=== PATIENT | male | born 1980 | race Caucasian/White ===

== ENCOUNTER 2017-08-01 09:56 | Emergency (ER) | payer SELFPAY | END 2017-08-01 10:55 | disposition home or self-care (01) | LOC: M ED 09:56 | DX: J06.9 Acute upper respiratory infection, unspecified (principal); B34.9 Viral infection, unspecified; B30.9 Viral conjunctivitis, unspecified; F17.210 Nicotine dependence, cigarettes, uncomplicated | CPT/HCPCS: 99282 ==

== ENCOUNTER 2017-12-30 09:46 | Day surgery (SDC) | payer SELFPAY ==
[2017-12-30 10:54] LABS: BASO % 0.2 % (0.0-1.0); HEMATOCRIT 47.6 % (42.0-52.0); HEMOGLOBIN 17.1 g/dl (13.5-17.5); IMMATURE GRANULOCYTE % 0.4 % (0-3.0); LYMPH # 1.8 10^3/uL (1.5-4.5); LYMPH % 9.7 % (24.0-44.0); MEAN CORPUSCULAR HEMOGLOBIN 29.6 pg (27.0-33.0); MEAN CORPUSCULAR HGB CONC 35.9 g/dl (32.0-36.5); MEAN CORPUSCULAR VOLUME 82.4 fl (80.0-96.0); MONO # 1.5 10^3/uL (0.0-0.8); MONO % 7.8 % (0.0-5.0); NEUTROPHILS # 15.3 10^3/uL (1.8-7.7); NEUTROPHILS % 81.9 % (36.0-66.0); PLATELET COUNT, AUTOMATED 266 10^3/uL (150-450); RED BLOOD COUNT 5.78 10^6/uL (4.30-6.10); RED CELL DISTRIBUTION WIDTH 12.7 % (11.5-14.5); WHITE BLOOD COUNT 18.7 10^3/uL (4.0-10.0)
[2017-12-30 11:10] LABS: INR 0.96; PROTHROMBIN TIME 12.9 SECONDS (12.1-14.4)
[2017-12-30 11:11] LABS: PARTIAL THROMBOPLASTIN TIME 32.3 SECONDS (25.4-37.6)
[2017-12-30] MEDS: PANTOPRAZOLE 40MG INJ (PROTONIX) (C9113) IV (11:14)
[2017-12-30] MEDS: GI COCKTAIL 50ML BTL(HYOSCYAMINE/MAALOX/LIDOCAINE VISCOUS)(1:3:1) PO (11:14)
[2017-12-30 11:21] LABS: ALBUMIN 4.4 GM/DL (3.2-5.2); ALBUMIN/GLOBULIN RATIO 1.02 (1.00-1.93); ALKALINE PHOSPHATASE 87 U/L (45-117); ALT/SGPT 36 U/L (12-78); ANION GAP 10 MEQ/L (8-16); AST/SGOT 15 U/L (7-37); BILIRUBIN,DIRECT 0.2 MG/DL (0.0-0.2); BILIRUBIN,TOTAL 0.9 MG/DL (0.2-1.0); BLOOD UREA NITROGEN 23 MG/DL (7-18); CALCIUM LEVEL 9.8 MG/DL (8.5-10.1); CARBON DIOXIDE LEVEL 29 MEQ/L (21-32); CHLORIDE LEVEL 99 MEQ/L (98-107); CPK CREATINE PHOSPHOKINASE 125 U/L (39-308); FREE T4 1.36 NG/DL (0.76-1.46); GLOMERULAR FILTRATION RATE > 60.0 (>60); GLUCOSE, FASTING 120 MG/DL (70-100); LIPASE 65 U/L (73-393); POTASSIUM SERUM 3.3 MEQ/L (3.5-5.1); SODIUM LEVEL 138 MEQ/L (136-145); TOTAL PROTEIN 8.7 GM/DL (6.4-8.2); TROPONIN I < 0.02 NG/ML (< 0.10)
[2017-12-30 11:26] LABS: CK-MB VALUE MASS < 1.0 NG/ML (<3.6)
[2017-12-30] MEDS ORDERED: ISOVUE-370 76% 100ML VIAL (Q9967) As Ordered (11:41)
[2017-12-30] MEDS: POTASSIUM CHLORIDE 10 MEQ SR TABLET PO (11:57)
[2017-12-30] MEDS: NS 1,000 ML IV ×2 (14:01→16:22)
[2017-12-30] MEDS: PIPERACILLIN/TAZOBACTAM SOD 4.5 GM in D5W MINI-BAG PLUS 50 ML IV (14:48)
[2017-12-30] MEDS: MORPHINE 4 MG/ML 1ML VIAL/SYRINGE (J2270) IV (16:22)
[2017-12-30] MEDS ORDERED: MIDAZOLAM INJ 2 MG/2 ML VIAL (J2250) As Ordered (17:25)
[2017-12-30] MEDS ORDERED: fentaNYL 100 MCG/2 ML INJECTION (J3010) As Ordered ×2 (17:25→18:48)
[2017-12-30] MEDS ORDERED: LIDOCAINE 2% INJ 100 MG/5 ML SDV (FOR ANES.) As Ordered (17:29)
[2017-12-30] MEDS ORDERED: PROPOFOL 200 MG/20 ML VIAL As Ordered (17:29)
[2017-12-30] MEDS ORDERED: ONDANSETRON 4MG/2ML VIAL (J2405) As Ordered (17:29)
[2017-12-30] MEDS ORDERED: dexameTHASONE 4 MG/ML 1ML VIAL (J1100) As Ordered (17:29)
[2017-12-30] MEDS ORDERED: LABETALOL HCL 100 MG/20 ML VIAL As Ordered (18:09)
[2017-12-30] MEDS ORDERED: NEOSTIGMINE 10 MG/10 ML VIAL (J2710) As Ordered (18:48)
[2017-12-30] MEDS: BUPIVACAINE HCL 0.25% 30 ML VIAL As Ordered (18:48)
[2017-12-30] MEDS ORDERED: GLYCOPYRROLATE INJ 0.2 MG/ML 2 ML VIAL As Ordered (18:48)
[2017-12-30] MEDS ORDERED: NORCO, ANEXSIA 5/325MG TABLET (HYDROcodone/ACETAMINOPHEN) PO ×2 (19:15→19:30)
[2017-12-30] MEDS ORDERED: ONDANSETRON 4MG/2ML VIAL (J2405) IV ×2 (19:15→19:30)
[2017-12-30] MEDS ORDERED: ACETAMINOPHEN TAB 650MG DOSE (2X325MG) PO (19:15)
[2017-12-30] MEDS ORDERED: MORPHINE 4 MG/ML 1ML VIAL/SYRINGE (J2270) IV (19:15)
[2017-12-30] MEDS ORDERED: IBUPROFEN 600 MG TAB PO (19:15)
[2017-12-30] MEDS ORDERED: fentaNYL 100 MCG/2 ML INJECTION (J3010) IV (19:30)
[2017-12-30] MEDS: LR 1,000 ML IV ×2 (21:11→23:51)
[2017-12-30] MEDS: PIPERACILLIN/TAZOBACTAM SOD 3.375 GM in D5W MINI-BAG PLUS 50 ML IV (22:05)
[2017-12-31] MEDS: LR 1,000 ML IV (03:07)
== END 2017-12-31 12:00 | disposition left against medical advice (07) ==
LOC: M ED INP 20:00 → M ED 09:46 → M SDC 16:54 → M MS5PR 20:00 → M ED INP 16:54 → M SDC 12-31 12:00 → M MS5PR 20:00
DX: K35.89 Other acute appendicitis (principal); F17.210 Nicotine dependence, cigarettes, uncomplicated; Z79.82 Long term (current) use of aspirin
CPT/HCPCS: 44970

== ENCOUNTER 2018-06-26 08:13 | Emergency (ER) | payer OTHER, SELFPAY ==
[~2018-06-26] VITALS: Ht 157.5 cm; Wt 61.8 kg
[~2018-06-26 08:13] MED LIST: ASPI1TAB PO; CROM5SOL OP; FLON1SPR; IBUP-1022 PO; SUDA1TAB3 PO
[2018-06-26 08:33] LABS: BASO % 0.3 % (0.0-1.0); EOS # 0.1 10^3/uL (0.0-0.50); EOS % 1.9 % (0.0-3.0); HEMATOCRIT 48.5 % (42.0-52.0); HEMOGLOBIN 16.7 g/dl (13.5-17.5); LYMPH # 1.5 10^3/uL (1.5-4.5); LYMPH % 23.6 % (24.0-44.0); MEAN CORPUSCULAR HEMOGLOBIN 30.1 pg (27.0-33.0); MEAN CORPUSCULAR HGB CONC 34.4 g/dl (32.0-36.5); MEAN CORPUSCULAR VOLUME 87.5 fl (80.0-96.0); MONO # 0.9 10^3/uL (0.0-0.8); MONO % 14.2 % (0.0-5.0); NEUTROPHILS # 3.8 10^3/uL (1.8-7.7); NEUTROPHILS % 59.7 % (36.0-66.0); PLATELET COUNT, AUTOMATED 193 10^3/uL (150-450); RED BLOOD COUNT 5.54 10^6/uL (4.30-6.10); WHITE BLOOD COUNT 6.4 10^3/uL (4.0-10.0)
[2018-06-26] MEDS: NITROGLYCERIN 0.4 MG SUBL TABLET SL PRN ×2 (08:37→09:01)
[2018-06-26 08:42] LABS: INR 0.97
[2018-06-26 08:43] LABS: PARTIAL THROMBOPLASTIN TIME 35.4 SECONDS (25.4-37.6)
[2018-06-26 09:01] VITALS: BP 114/66
[2018-06-26 09:13] LABS: ALBUMIN 3.6 GM/DL (3.2-5.2); ALT/SGPT 23 U/L (12-78); BILIRUBIN,DIRECT < 0.1 MG/DL (0.0-0.2); BILIRUBIN,TOTAL 0.3 MG/DL (0.2-1.0); BLOOD UREA NITROGEN 6 MG/DL (7-18); CALCIUM LEVEL 9.1 MG/DL (8.5-10.1); CARBON DIOXIDE LEVEL 29 MEQ/L (21-32); CHLORIDE LEVEL 106 MEQ/L (98-107); CK-MB VALUE MASS < 1.0 NG/ML (<3.6); CPK CREATINE PHOSPHOKINASE 83 U/L (39-308); CREATININE FOR GFR 0.76 MG/DL (0.70-1.30); FREE T4 0.99 NG/DL (0.76-1.46); GLOMERULAR FILTRATION RATE > 60.0 (>60); GLUCOSE, FASTING 107 MG/DL (70-100); LIPASE 93 U/L (73-393); POTASSIUM SERUM 4.2 MEQ/L (3.5-5.1); SODIUM LEVEL 139 MEQ/L (136-145); TOTAL PROTEIN 6.8 GM/DL (6.4-8.2); TROPONIN I < 0.02 NG/ML (< 0.10)
[2018-06-26] MEDS ORDERED: ISOVUE-370 76% 100ML VIAL (Q9967) As Ordered ONE (09:30)
--- NOTE | 2018-06-26 09:33 | REP ---
Chest two views HISTORY: Chest pain Comparison: 12/30/2017 The lungs are clear. The heart is normal in size. The pulmonary vasculature is normal in appearance. The bony structure is intact. IMPRESSION: No acute disease. Electronically Signed by Vu Galdamez MD 06/26/2018 09:24 A
--- NOTE | 2018-06-26 09:56 | REP ---
CT pulmonary angiogram: With IV contrast. History: Chest pain shortness of breath. Comparison studies: December 30, 2017 Contrast dose: 75 cc's of Isovue [address] technique: Helical scanning is acquired and overlapping 1.5 mm and contiguous 3 mm axial images are reformatted. In addition, maximum intensity projection and multiplanar re-formation images are generated in sagittal and coronal imaging projections. CT pulmonary angiographic findings: There is good opacification of the pulmonary arterial tree. There is no CT evidence of pulmonary embolism. Thoracic aorta is normal in course and caliber and enhances homogeneously. No evidence of dissection. There are multiple scattered granulomatous calcifications in the lung singer. No suspicious pulmonary nodule is appreciated. No hilar or mediastinal mass or adenopathy is observed. No infiltrate is seen. No pleural or pericardial effusion is observed. Normal adrenal glands are seen bilaterally in the upper abdomen. There is a small accessory splenule. No bony destructive lesion is appreciated. Impression: No CT evidence of pulmonary embolus. Old granulomatous calcifications in the lung singer. Otherwise no acute disease. Electronically Signed by Frankie Aquino MD 06/26/2018 09:47 A
[2018-06-26 14:59] LABS: CK-MB VALUE MASS < 1.0 NG/ML (<3.6); CPK CREATINE PHOSPHOKINASE 75 U/L (39-308); MB/CK RELATIVE INDEX 1.33 (< OR =4); TROPONIN I < 0.02 NG/ML (< 0.10)
[2018-06-26 15:48] VITALS: BP 140/90
--- NOTE | 2018-06-27 13:51 | ECGEPIP ---
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
--- NOTE | 2018-06-27 13:56 | ECGEPIP ---
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
== END 2018-06-26 15:56 | disposition home or self-care (01) ==
LOC: M ED 08:13
DX: R07.9 Chest pain, unspecified (principal); I25.2 Old myocardial infarction; Z72.0 Tobacco use; Z82.49 Family history of ischemic heart disease and other diseases of the circulatory system; Z79.82 Long term (current) use of aspirin
CPT/HCPCS: 36415; 71046; 71275; 80048; 80076; 82550; 82553; 83690; 84439; 84443; 85025; 85610; 85730; 93005; 93041; 94760; 99285; Q9967

== ENCOUNTER 2021-03-25 21:24 | Emergency (ER) | payer OTHER ==
[~2021-03-25] VITALS: Ht 162.6 cm; Wt 75.0 kg
[~2021-03-25 21:24] MED LIST changes: -ASPI1TAB PO; +ASPI81TA26 PO
[2021-03-25 21:25] VITALS: BP 143/74
--- OUTSIDE RECORDS SUMMARY | 2021-03-29 13:33 | CCD ---
Author Author [facility] Organization [facility] Address Unknown Phone Unavailable Care Team Providers Care Road Roller Operator Name Role Phone NO, PCP Unavailable Unavailable Rei Baker MD Unavailable Unavailable Rei Baker MD Unavailable Unavailable Rei Baker MD Unavailable Unavailable Rei Baker MD Unavailable Unavailable Rei Baker MD Unavailable Unavailable Rei Baker MD Unavailable Unavailable Re-disclosure Warning The records that you are about to access may contain information from federally-assisted alcohol or drug abuse programs. If such information is present, then the following federally mandated warning applies: This information has been disclosed to you from records protected by federal confidentiality rules (42 CFR part 2). The federal rules prohibit you from making any further disclosure of this information unless further disclosure is expressly permitted by the written consent of the person to whom it pertains or as otherwise permitted by 42 CFR part 2. A general authorization for the release of medical or other information is NOT sufficient for this purpose. The Federal rules restrict any use of the information to criminally investigate or prosecute any alcohol or drug abuse patient.The records that you are about to access may contain highly sensitive health information, the redisclosure of which is protected by Article 27-F of the [facility] Public Health law. If you continue you may have access to information: Regarding HIV / AIDS; Provided by facilities licensed or operated by the [facility] Office of Mental Health; or Provided by the [facility] Office for People With Developmental Disabilities. If such information is present, then the following [facility] mandated warning applies: This information has been disclosed to you from confidential records which are protected by state law. State law prohibits you from making any further disclosure of this information without the specific written consent of the person to whom it pertains, or as otherwise permitted by law. Any unauthorized further disclosure in violation of state law may result in a fine or longterm sentence or both. A general authorization for the release of medical or other information is NOT sufficient authorization for further disc losure. Family History Family Member Name Family Member Gender Family Member Status Date o f Status Description Data Source(s) Unknown Unknown Problem [facility] ([facility]) Unknown Unknown Problem [facility] ([facility]) Encounters Encounter Providers Location Date Indications Data Source(s ) Emergency Attender: Rei Baker MDConsultant: PCP NO 03/27/2021 05:59:00 PM EDT - 03/27/2021 08:38:00 PM EDT [facility] Patient discharged. Medications No Information Insurance Providers Payer name Policy type / Coverage type Policy ID Covered alliance party ID Covered alliance party's relationship to gonzalez Policy Gonzalez Plan Information CALLIE [id number] SP [id number] 600 CALLIE [facility] O [id number] S [id number] CALLIE [id number] SP [id number] SELF PAY ONLY [id number] SP [id number] SELF PAY ONLY UNAVAILABLE UNAV AILABLE SELF PAY UNAVAILABLE SP UNAVAILA BLE MEDICAID [id number] SP [id number] [employer]UN[employer] PLAN MCDO [id number] SP [id number] UN COMMUNITY PLAN MCDO UNAVAILABLE SP UNAVAILABLE MEDICAID UNAVAILABLE UNAVAILA BLE BLUE CROSS DUONG PLAN [id number] SP [id number] [facility] BLUE [id number] SP [id number] [facility] BLUE [id number] SP [id number] Problems, Conditions, and Diagnoses No Information Surgeries/Procedures No Information Results ID Date Data Source [id number] 03/27/2021 05:59:00 PM EDT [facility] 1 OrderSheet [facility] Emergency Department [address] [place] [address] Phone #: ext- [phone] 03/27/2021 17:59 Patient: JOSE MIGUEL RAMIREZ Sex: M : 1980 Age: 40yWEIGHT:74.8 kg (S) HEIGHT:64 inches (S) BMI:28.3ALLERGIES: No Known Drug AllergyCHIEF COMPLAINT: inguinal swellingDIAGNOSIS: Strain of tendon of medial thigh muscleLAB ORDERSOrder Description Priority Entered Acknowledged InitialedDIAGNOSTIC STUDY ORDERSOrder Description Priority Entered Acknowledged InitialedUS Scrotal STAT 18:31 03/27/2021 18:32 Lucy(Oxygen?(No)) Cain Daly RN PA; NOTES: Hernia? Reason for Study: Testicle/Scrotum PainUS Abdomen STAT 18:31 03/27/2021 18:32 Pato Ayala RN(Oxygen?(No)) PA; NOTES: Left Inguinal Hernia? Reason for Study: HerniaMEDICATION/IV/DRIP/FLUID ORDERSOrder Description Priority Entered Acknowledged InitialedToradol IM 60 mg 18:31 03/27/2021 19:31 Cain Gan R.N. PA;GENERAL ORDERSOrder Description Priority Entered Acknowledged Initialed[Electronically signed by Kim Gan R.N. (20:38 03/27/2021)][Electronically signed by Cain Kay (22:08 03/27/2021)][Electronically locked by Kim Gan R.N. (20:38 03/27/2021)] Name Value Range Interpretation Code Description Data Jenifer rce(s) Supporting Document(s) ID Date Data Source [id number] 03/27/2021 05:59:00 PM EDT [facility] 1 Medication Reconciliation Report [facility] Emergency Department [address] [place] [address] Phone #: ext- [phone] 03/27/2021 17:59 Patient: JOSE MIGUEL RAMIREZ Sex: M : 1980 Age: 40yWeight: 74.8 kgHeight/Length: 64 in.BMI: 28.3ALLERGIES: No Known Drug AllergyThe patient's Home Medications are listed below:NONE.The source(s) of the original Home Medication information:patientThe following Medications were given to the patient in the Emergency Department:Toradol [IM] IM 60 mg, administered: 19:31 03/27/2021The following Medications were prescribed to the patient:ibuprofen 800 mg tablet Take 1 tablet three times a day as needed for pain for 15 days -- Dispense 45tablet. Refills: 0. Substitution permitted. Note to Pharmacy - USE Rx DISCOUNT CARD: $10.3,BIN:[id number], PCN:VONNIE, Group:[id number], ID:[id number].Pharmacy - [facility] - [address] [place] [address]. Phone: FaxNumber: . -- HERVE Gonzalez Name Value Range Interpretation Code Description Data Jenifer rce(s) Supporting Document(s) ID Date Data Source [id number] 03/27/2021 05:59:00 PM EDT [facility] 1 Medication Administration Record [facility] Emergency Department [address] [place] [address] Phone #: ext- [phone] 03/27/2021 17:59 Patient: JOSE MIGUEL RAMIREZ Sex: Andrea : 1980 Age: 40yWeight: 74.8 kgHeight/Length: 64 inBMI: 28.3ALLERGIES: No Known Drug Allergy Date/Time Medication Administered Medication OrderedGiven TORADOL [IM] (KETOROLAC Toradol IM 60 mg19:31 03/27/2021 TRO METHAMINE)Kim Gan R.N. Dose: 60 mg IM Name Value Range Interpretation Code Description Data Jenifer rce(s) Supporting Document(s) ID Date Data Source [id number] 03/27/2021 05:59:00 PM EDT [facility] 1 General Instructions [facility] Emergency Department [address] [place] [address] Phone #: ext- [phone] 03/27/2021 17:59 Patient: JOSE MIGUEL RAMIREZ Sex: M : 1980 Age: 40yStrain of left inguinal areaINSTRUCTIONSDo not work today, tomorrow.(Wear supprtive underwear).Warnings: Further evaluation is necessary. It is very important to follow up with a healthcare provider.GENERAL WARNINGS: Return or contact your physician immediately if your condition worsens orchanges unexpectedly, if not improving as expected, or if other problems arise. Specifically return if painworsens.Your Current Medications: .No home medication.Prescription Medications:ibuprofen 800 mg tablet Take 1 tablet three times a day as needed for pain for 15 days -- Dispense 45tablet. Refills: 0. Substitution permitted. Note to Pharmacy - USE Rx DISCOUNT CARD: $10. 3,BIN:[id number], PCN:VONNIE, Group:[id number], ID:[id number].Pharmacy - [facility] #[address] - [id number] ; [place] [address]. FaxNumber: .Understanding of the discharge instructions verbalized by patient.Follow-up with: [facility], , , [address] [place] [address], [facility] Follow up. Call for the next available appointment. Reason for referral: evaluation, treatment andevaluate Left Groin Pain. Summary of care provided to patient. ADDITIONAL INFORMATIONGroin Strain (Adult)A groin strain is a stretching or partial tearing of the muscle in the lower belly (abdomen) or upperthigh. This may happen because of too much coughing, heavy lifting, or active sports. The pain maylast for several days or weeks, depending on how bad the stretch or tear is. It will generally get betterwith rest, ice, and anti-inflammatory medicines. 2 General Instructions [facility] Emergency Department [address] [place] [address] Phone #: [phone] 03/27/2021 17:59 Patient: JOSE MIGUEL RAMIREZ Sex: M : 1980 Age: 40yA groin strain can lead to a groin hernia. This is also called an inguinal hernia. A hernia is a completetear of the abdominal muscle. This allows fat or the intestines to bulge out and create a visible bumpjust above the thigh crease. This is a more serious problem and may need surgery to repair it. Whenyou lie down, the bump should get smaller or disappear completely. If it doesn't, and you are not ableto flatten it with your hand, you need medical attention right away.Home care Don't do any heavy lifting, straining, or any activities that cause groin pain. You may use [id number] pain medicine to control pain, unless another pain medicine was prescribed. If you have chronic liver or kidney disease or ever had a stomach ulcer or GI (gastrointestinal) bleeding, talk with your healthcare provider before using these medicines.Follow-up careFollow up with your healthcare provider, or as advised. Make an appointment with your healthcareprovider if you develop a bump in the area of the groin strain.When to seek medical adviceCall your healthcare provider right away if any of these occur: Increasing pain in the area of the groin strain Tender bump just above the groin crease that does not flatten when you lie down or press on it Overall abdominal swelling or pain Fever of 100.4F (38C) or above lasting for 24 to 48 hours Chills Repeated vomiting Pain that moves to the lower right abdomen, just below the waistline, or spreads to the back [id number] The [employer]. [address] [place] [address]. All rights reserved. This information is not intended as asubstitute for professional medical care. Always follow your healthcare professional's instructions. You have been given the following additional information: Groin Strain 3 General Instructions [facility] Emergency Department [address] [place] [address] Phone #: ext- [phone] 03/27/2021 17:59 Patient: JOSE MIGUEL RAMIREZ Sex: M : 1980 Age: 40yDo not work today, tomorrow.(Electronically signed by HERVE Gonzalez 03/27/2021 22:08) Name Value Range Interpretation Code Description Data Jenifer rce(s) Supporting Document(s) ID Date Data Source [id number] 03/27/2021 05:59:00 PM EDT [facility] 1 Clinical Report - Nurses [facility] Emergency Department [address] [place] [address] Phone #: ext- [phone] 03/27/2021 17:59 Patient: JOSE MIGUEL RAMIREZ Sex: M : 1980 Age: 40yTRIAGEArrived by private vehicle. Historian: patient. ( presents via taxi with c/o L inguinal swelling and painalong with L testicle swelling, started , had surgery there in 2005).Triage time: 18:10 03/27/2021. Acuity: LEVEL 3.Chief Complaint: INGUINAL SWELLING (L inguinal swelling and L testicular swelling).Alert. No acute distress.Onset. (4 days). He has had testicular pain, involving the left testicle and inguinal swelling.Treatment SECURITY REP:Took Tylenol and ibuprofen.SEPSIS SCREEN: SIRS SCREEN NEGATIVE. SEPSIS SCREEN NEGATIVE. No suspected or confirmedsigns of infection present. --18:15 03/27/21 Malika Ayala RN18:10 03/27/21. BP: 131/83. MAP: 99. HR: 81. RR: 16. O2 saturation: 97%. Temp: 98.5 F. Pain level now:01/24. --18:15 03/27/21 Malika Ayala RN.Weight: 74.8 kg stated. Height/Length: 64 inches Per Patient. BMI: 28.3. --18:11 03/27/21 Malika Ayala RN.MedicationsNone. --18:13 03/27/21 Malika Ayala RN.AllergiesNo Known Drug Allergy. --18:13 03/27/21 Malika Ayala RN.PROBLEMS:Chest Wall Pain.Myocardial Infarction. --18:13 03/27/21 Malika Ayala RN.Medication/allergy information source: the patient and patient's previous visit record. --18:15 03/27/21Malika Ayala RN.ADDITIONAL SURGERIES:Appendectomy.Hernia Repair. --18:13 03/27/21 Malika Aylaa RN.History 2 Clinical Report - Nurses [facility] Emergency Department [address] [place] [address] Phone #: ext- [phone] 03/27/2021 17:59 Patient: JOSE MIGUEL RAMIREZ Sex: M : 1980 Age: 40y SOCIAL HX: Heavy tobacco smoker- less than 1 pack per day. Occasional alcohol use. Drug use: marijuana. He was offered HIV testing but declined and hepatitis C testing but declined. He has not traveled outside the [place] Infectious disease exposure: No infectious disease exposure. SELF HARM ASSESSMENT: Self harm assessment was performed. The patient answered "no" to the question(s) "Have you recently felt down, depressed, or hopeless?". ABUSE ASSESSMENT: No report of abuse. NUTRITIONAL RISK ASSESSMENT: The nutritional risk assessment revealed no deficiencies. FUNCTIONAL ASSESSMENT: Functional assessment: no impairments noted. LEARNING NEEDS ASSESSMENT: The learning needs assessment revealed no barriers. FALL RISK ASSESSMENT: Fall risk assessment completed. No risk factors identified. SKIN INTEGRITY ASSESSMENT: Skin integrity risk assessment completed. No skin integrity risk identified. --18:15 03/27/21 Malika Ayala RN.PHYSICAL ASSESSMENTAmbulatory to room.GENERAL / NEURO / PSYCH: Alert. Oriented X 4. Appears in no acute distress.HEENT: Mucous membranes are pink.RESPIRATORY: Respirations not labored.CVS: Capillary refill less than 2 seconds.GI / : Scrotal swelling. Scrotal tenderness.SKIN: Skin is warm and dry. --18:16 05/07 Malika Ayala RN.NURSING PROGRESS NOTESPatient gowned. Reassurance given. Two patient identifiers checked. Bed placed in lowest position.Brakes of bed on. Patient ready for evaluation. --18:15 03/27/21 Malika Ayala RN 18:34 03/27/21. [facility] with nuclear chemistry technician. --18:49 03/27/21 Malika Ayala RN 19:31 03/27/2021 Toradol (Ketorolac Tromethamine) IM 60 mg given. Given in the right deltoid. Allergies verified and confirmed 5 rights. Information reviewed with patient. Verbalizes understanding. --19:31 03/27/21 Kim Gan R.N. 19:34 03/27/21. BP: 129/83. HR: 80. RR: 16. O2 saturation: 99%. --19:34 03/27/21 [facility]. 3 Clinical Report - Nurses [facility] Emergency Department [address] [place] [address] Phone #: ext- [phone] 03/27/2021 17:59 Patient: JOSE MIGUEL RAMIREZ Sex: M : 1980 Age: 40yDISPOSITION / DISCHARGE 20:31 03/27/21. BP: 127/89. HR: 86. RR: 16. O2 saturation: 99%. Temp: 98.1 F. Pain level now 08/24. --20:32 03/27/21 [facility] [address] Condition at departure: stable. No learning barriers present. Discharge instructions provided and reviewed with the patient. Reviewed warnings. Reviewed medication(s) side effects, precautions, dosing and course information. Prescription(s) given to the patient and sent electronically to pharmacy. Medication(s) for home use given to the patient per protocol. Treatments reviewed. Reviewed referral to a surgeon for followup. Work note given. Patient verbalized understanding. Written instructions provided in [place]. The patient was discharged by the physician actuarial assistant. He was discharged home and accompanied by field contractor. He left ambulatory and via private vehicle. Analytical Lab Analyst driving. --20:38 03/27/21 Kim Gan R.N.Locked/Released at 03/27/2021 20:38 by Kim Gan R.N. Name Value Range Interpretation Code Description Data Jenifer rce(s) Supporting Document(s) ID Date Data Source [id number] 03/27/2021 05:59:00 PM EDT [facility] 1 Clinical Report - Physicians/Mid Levels [facility] Emergency Department [address] [place] [address] Phone #: ext- [phone] 03/27/2021 17:59 Patient: JOSE MIGUEL RAMIREZ Sex: M : 1980 Age: 40y Time Seen: 18:21 03/27/2021. Arrived- By private vehicle. Historian- patient.HISTORY OF PRESENT ILLNESS Chief Complaint: Left Groin and Left Testicular pain. This started 4 days ago; presents via taxi with c/o L inguinal swelling and pain along with L testicle swelling, started th, had surgery there in 2005) and is still present. It was gradual in onset and has been constant. At its maximum, severity described as mild. When seen in the E.D., severity described as mild. No loss of appetite, weight loss, headache, visual disturbance or fatigue. No muscle aches or weakness. Denies sleep problem. Similar symptoms previously. Patient has had similar symptoms once. Recent medical care: Not recently seen/assessed.REVIEW OF SYSTEMSNo fever, sore throat, sinus drainage, nasal congestion or cough. No difficulty breathing, chest pain,abdominal pain, nausea or vomiting. No diarrhea, black stools, bloody stools, chills or difficulty withurination. No skin rash, back pain, calf pain, headache or blackouts. No double vision. No difficulty withambulation.PAST HISTORYProblems:Chest Wall Pain.Myocardial Infarction. Additional Surgeries: Appendectomy. Hernia Repair. Medications: None. Allergies: No Known Drug Allergy.SOCIAL HISTORYHeavy tobacco smoker (cigarette)- 1 pack per day. Occasional alcohol use. Occasional drug use:marijuana.PHYSICAL EXAMVital Signs: 03/27/2021 18:10 BP: 131/83. MAP: 99. HR: 81. RR: 16. O2 saturation: 97%. Temp: 98.5 F.Pain level now: 01/24. Have been reviewed as normal. Oxygen saturation normal. 2 Clinical Report - Physicians/Mid Levels [facility] Emergency Department [address] [place] [address] Phone #: ext- [phone] 03/27/2021 17:59 ---- Patient: JOSE MIGUEL RAMIREZ Sex: M : 1980 Age: 40y Appearance: Alert. No acute distress. Eyes: Pupils equal, round and reactive to light. Eyes normal inspection. ENT: Ears normal. Nose normal. Pharynx normal. Neck: Normal inspection. Neck supple. CVS: Normal heart rate and rhythm. Respiratory: No respiratory distress. Abdomen: No visible injury. Soft. Bowel sounds normal. No mass. No mass present. (neg inguinal hernia palpated). Back: Normal inspection. : Mild tenderness of the left testicle and epididymis. Skin: Skin warm and dry. Normal skin color. No rash. Normal skin turgor. Extremities: Extremities exhibit normal ROM. Neuro: Oriented X 3.LABS, X-RAYS, AND EKGAbdominal Sonogram: Normal study. (no hernia). The study was interpreted by the radiologist andcontemporaneously by me. Interpretation time: 20:25 03/27/2021.Laboratory Tests: Laboratory tests have been ordered, with results reviewed and considered in themedical decision making process.Note - Tests: (US Testicles- Small Bilat Varicoceles).PROGRESS AND PROCEDURESCourse of Care: :Mar 27 2021. Evaluation after observation. (Discussed exam and US results andpt is agreeable with dx and tx plan.). Patient counseled in person regarding the patient's stable condition, test results, diagnosis and need for follow-up. Patient agrees with plan of care. 20:Mar 27 2021. Disposition: Discharged home in good and improved condition (20:Mar 27 2021).CLINICAL IMPRESSION Strain of left inguinal areaINSTRUCTIONS Do not work today, tomorrow. (Wear supprtive underwear). Warnings: Further evaluation is necessary. It is very important to follow up with a healthcare provider. GENERAL WARNINGS: Return or contact your physician immediately if your condition worsens or changes unexpectedly, if not improving as expected, or if other problems arise. Specific ally return if pain 3 Clinical Report - Physicians/Mid Levels [facility] Emergency Department [address] [place] [address] Phone #: ext- [phone] 03/27/2021 17:59 Patient: JOSE MIGUEL RAMIREZ Sex: M : 1980 Age: 40y worsens. Your Current Medications: . No home medication. Prescription Medications: ibuprofen 800 mg tablet Take 1 tablet three times a day as needed for pain for 15 days -- Dispense 45 tablet. Refills: 0. Substitution permitted. Note to Pharmacy - USE Rx DISCOUNT CARD: $10.3, BIN:[id number], PCN:VONNIE, Group:GERALD, ID:[id number]. Pharmacy - [facility] #06 - [id number] ; [place] [address]. . Understanding of the discharge instructions verbalized by patient. Follow-up with: [facility], , , [address] [place] [address], [id number] Follow up. Call for the next available appointment. Reason for referral: evaluation, treatment and evaluate Left Groin Pain. Summary of care provided to patient.(Electronically signed by HERVE Gonzalez 03/27/2021 22:08) Name Value Range Interpretation Code Description Data Jenifer rce(s) Supporting Document(s) Procedure Social History No Information
== END 2021-03-26 02:58 | disposition left against medical advice (07) ==
LOC: M ED 21:24
DX: Z53.29 Procedure and treatment not carried out because of patient's decision for other reasons (principal)

== ENCOUNTER 2021-12-18 10:55 | Emergency (ER) | payer MEDICAID, OTHER, SELFPAY ==
[~2021-12-18] VITALS: Ht 162.6 cm; Wt 68.2 kg
[2021-12-18 10:55] VITALS: BP 134/97
[2021-12-18] MEDS ORDERED: BOOSTRIX/ADACEL VACCINE (DIPHTH/PERTUSS/ACELL/TETANUS) 0.5ML SYR IM ONE (12:10)
== END 2021-12-18 12:50 | disposition home or self-care (01) ==
LOC: M ED 10:55
DX: S61.215A Laceration without foreign body of left ring finger without damage to nail, initial encounter (principal); W26.9XXA Contact with unspecified sharp object(s), initial encounter; Y93.G1 Activity, food preparation and clean up; Y99.0 Civilian activity done for income or pay; I25.2 Old myocardial infarction

== ENCOUNTER → 2022-08-27 | Outpatient (REF) | payer MEDICAID, SELFPAY ==
[~2022-08-27] MED LIST changes: +CROM4SOL4 OP; -CROM5SOL OP
[2022-08-27 14:32] LABS: ALBUMIN 4.3 G/DL (3.2-5.2); ALKALINE PHOSPHATASE 89 U/L (46-116); ALT/SGPT 29 U/L (7.0-40); AST/SGOT 24 U/L (<34); BILIRUBIN,TOTAL 0.6 MG/DL (0.3-1.2); BLOOD UREA NITROGEN 11 MG/DL (9-23); CARBON DIOXIDE LEVEL 29 MMOL/L (20-31); CHLORIDE LEVEL 103 MMOL/L (98-107); CHOLESTEROL LEVEL 215 MG/DL (<200); CHOLESTEROL RISK RATIO 3.22 (<5); CREATININE FOR GFR 0.72 MG/DL (0.70-1.30); GLOMERULAR FILTRATION RATE > 60.0 (>60); GLUCOSE, FASTING 114 MG/DL (60-100); HDL CHOLESTEROL 66.7 MG/DL (>40); LDL CHOLESTEROL 124.1 MG/DL (<100); NON-HDL-C 148.3 MG/DL; POTASSIUM SERUM 3.7 MMOL/L (3.5-5.1); SODIUM LEVEL 139 MMOL/L (136-145); TOTAL PROTEIN 7.5 G/DL (5.7-8.2); TRIGLYCERIDES LEVEL 121 MG/DL (<150)
[2022-08-27 14:34] LABS: BASO % 0.3 % (0.0-1.0); EOS # 0.1 10^3/uL (0.0-0.5); EOS % 1.2 % (0.0-3.0); HEMATOCRIT 46.7 % (42.0-52.0); LYMPH # 1.7 10^3/uL (1.5-5.0); LYMPH % 17.5 % (24.0-44.0); MEAN CORPUSCULAR HEMOGLOBIN 30.3 pg (27.0-33.0); MEAN CORPUSCULAR HGB CONC 34.3 g/dl (32.0-36.5); MEAN CORPUSCULAR VOLUME 88.4 fl (80.0-96.0); NEUTROPHILS # 6.9 10^3/uL (1.5-8.5); NEUTROPHILS % 70.6 % (36.0-66.0); PLATELET COUNT, AUTOMATED 246 10^3/uL (150-450); RED BLOOD COUNT 5.28 10^6/uL (4.30-6.10); THYROID STIMULATING HORMONE 1.152 uIU/ML (0.55-4.78); WHITE BLOOD COUNT 9.8 10^3/uL (4.0-10.0)
[2022-08-27 15:09] LABS: HEMOGLOBIN A1c 5.3 % (4.0-6.0)
== END ==
LOC: M LAB REF 12:17
PROVIDERS: ATTEND Nurse Practitioner Family
DX: Z68.29 Body mass index [BMI] 29.0-29.9, adult (principal); R51.9 Headache, unspecified

== ENCOUNTER 2024-07-02 11:30 | Emergency (ER) | payer SELFPAY ==
[~2024-07-02] VITALS: Ht 162.6 cm; Wt 70.2 kg
[2024-07-02 12:22] LABS: BASO % 0.2 % (0.0-1.0); EOS # 0.2 10^3/uL (0.0-0.5); EOS % 1.1 % (0.0-3.0); HEMOGLOBIN 16.3 g/dl (13.5-17.5); LYMPH # 2.6 10^3/uL (1.5-5.0); LYMPH % 17.7 % (24.0-44.0); MEAN CORPUSCULAR HEMOGLOBIN 29.6 pg (27.0-33.0); MEAN CORPUSCULAR HGB CONC 34.7 g/dl (32.0-36.5); MEAN CORPUSCULAR VOLUME 85.3 fl (80.0-96.0); MONO # 1.6 10^3/uL (0.0-0.8); MONO % 10.7 % (2.0-8.0); NEUTROPHILS # 10.4 10^3/uL (1.5-8.5); PLATELET COUNT, AUTOMATED 272 10^3/uL (150-450); RED BLOOD COUNT 5.51 10^6/uL (4.30-6.10); WHITE BLOOD COUNT 14.8 10^3/uL (4.0-10.0)
[2024-07-02 12:51] LABS: ALBUMIN 4.6 G/DL (3.2-5.2); ALKALINE PHOSPHATASE 86 U/L (40-129); ALT/SGPT 25 U/L (7.0-40); AST/SGOT 21 U/L (<34); BILIRUBIN,DIRECT 0.1 MG/DL (<0.4); BILIRUBIN,TOTAL 0.6 MG/DL (0.3-1.2); BLOOD UREA NITROGEN 15 MG/DL (9-23); CALCIUM LEVEL 9.6 MG/DL (8.5-10.1); CARBON DIOXIDE LEVEL 34 MMOL/L (20-31); CHLORIDE LEVEL 101 MMOL/L (98-107); CREATININE FOR GFR 0.61 MG/DL (0.70-1.30); GLOMERULAR FILTRATION RATE > 60.0 (>60); GLUCOSE, FASTING 108 MG/DL (60-100); SODIUM LEVEL 143 MMOL/L (136-145); TOTAL PROTEIN 8.1 G/DL (5.7-8.2)
[2024-07-02 15:31] VITALS: O2SAT 97
[2024-07-02] MEDS: ONDANSETRON 4MG ORAL DISINTEGRATING TAB PO ONE (16:28)
[2024-07-02] MEDS: KETOROLAC 60MG 2ML VIAL IM ONE (16:30)
[2024-07-02 16:39] LABS: LIPASE 117 U/L (12-53)
[2024-07-02] MEDS ORDERED: ISOVUE-370 76% 100ML VIAL As Ordered ONE (16:57)
[2024-07-02] MEDS ORDERED: ONDA-282 PO (17:46)
[2024-07-02 17:52] VITALS: BP 133/88; TEMP 99.3
== END 2024-07-02 17:52 | disposition home or self-care (01) ==
LOC: M ED 11:30
DX: A09 Infectious gastroenteritis and colitis, unspecified (principal); K40.90 Unilateral inguinal hernia, without obstruction or gangrene, not specified as recurrent; K76.0 Fatty (change of) liver, not elsewhere classified; F17.210 Nicotine dependence, cigarettes, uncomplicated; F12.10 Cannabis abuse, uncomplicated; Z79.899 Other long term (current) drug therapy
CPT/HCPCS: 74177; 80048; 80076; 83690; 85025; 87486; 87581; 87633; 87798; 96372; 99284; J1885; Q9967

== ENCOUNTER → 2024-07-06 | Outpatient (REF) | payer OTHER, SELFPAY ==
[~2024-07-06] MED LIST changes: +ONDA-282 PO
[2024-07-06 17:59] LABS: BASO % 0.4 % (0.0-1.0); EOS # 0.1 10^3/uL (0.0-0.5); HEMATOCRIT 46.3 % (42.0-52.0); HEMOGLOBIN 15.4 g/dl (13.5-17.5); LYMPH # 2.6 10^3/uL (1.5-5.0); LYMPH % 25.6 % (24.0-44.0); MEAN CORPUSCULAR HEMOGLOBIN 29.2 pg (27.0-33.0); MEAN CORPUSCULAR HGB CONC 33.3 g/dl (32.0-36.5); MEAN CORPUSCULAR VOLUME 87.9 fl (80.0-96.0); MONO # 0.9 10^3/uL (0.0-0.8); MONO % 8.7 % (2.0-8.0); NEUTROPHILS # 6.6 10^3/uL (1.5-8.5); NEUTROPHILS % 64.1 % (36.0-66.0); PLATELET COUNT, AUTOMATED 241 10^3/uL (150-450); RED BLOOD COUNT 5.27 10^6/uL (4.30-6.10); WHITE BLOOD COUNT 10.2 10^3/uL (4.0-10.0)
[2024-07-06 18:22] LABS: CHOLESTEROL RISK RATIO 3.26 (<5); HDL CHOLESTEROL 51.1 MG/DL (>40); LDL CHOLESTEROL 99.5 MG/DL (<100); NON-HDL-C 115.9 MG/DL; THYROID STIMULATING HORMONE 1.654 uIU/ML (0.55-4.78)
[2024-07-06 18:38] LABS: HEMOGLOBIN A1c 5.3 % (4.0-6.0)
== END ==
LOC: M LAB REF 16:35
PROVIDERS: ATTEND Nurse Practitioner Family
DX: D72.829 Elevated white blood cell count, unspecified (principal)

== ENCOUNTER → 2024-09-09 | Outpatient (CLI) | payer SELFPAY | LOC: M RAD 07:32 | PROVIDERS: ATTEND Nurse Practitioner Family | DX: K76.9 Liver disease, unspecified (principal) ==

== ENCOUNTER → 2025-05-17 | Outpatient (CLI) | payer OTHER ==
[~2025-05-17] MED LIST changes: -IBUP-1022 PO; +IBUP600T42 PO
== END ==
LOC: M RAD 08:06
PROVIDERS: ATTEND Nurse Practitioner Family
DX: R91.8 Other nonspecific abnormal finding of lung field (principal); K40.90 Unilateral inguinal hernia, without obstruction or gangrene, not specified as recurrent